=== PATIENT | female | born 1985 | race Caucasian/White ===

== ENCOUNTER 2018-07-28 10:24 | Outpatient (CLI) | payer BC ==
--- NOTE | 2018-07-28 11:44 | RAD ---
RIGHT ANKLE RADIOGRAPHS 3 VIEWS: DATE: 07/28/2018. PROVIDED CLINICAL HISTORY: Right ankle pain status post injury. FINDINGS: Linear ray radiolucency is seen in the region of the navicular on the lateral view which could reflec t nondisplaced fracture. No additional potential fracture is evident. Alignment appears anatomic. Joint spaces appear preserved. IMPRESSION: Possible nondisplaced navicular fracture. Consider CT. POS: [facility]
== END 2018-07-28 10:25 | disposition home or self-care (01) ==
LOC: NAV RAD 10:24
PROVIDERS: ATTEND Family Medicine
DX: S93.491D Sprain of other ligament of right ankle, subsequent encounter (principal)

== ENCOUNTER 2022-10-23 11:57 | Emergency (ER) | payer BC ==
[~2022-10-23 11:57] MED LIST: Iopamidol 370 76% 100 ML VIAL ONE
[2022-10-23] MEDS ORDERED: ALPRAZolam 0.5 MG TAB ONE (12:35)
[2022-10-23 12:52] LABS: #Basophils 0.1 thou/uL (0.0-0.2); #Lymphocytes 3.3 thou/uL (1.20-3.40); #Monocytes 0.6 thou/uL (0.11-0.59); #Neutrophils 5.1 thou/uL (1.40-6.50); %Basophils 0.7 % (0.0-1.0); %Eosinophils 0.4 % (0.0-10.0); %Lymphocytes 36.4 % (21.0-51.0); %Monocytes 6.6 % (0.0-10.0); %Neutrophils 55.8 % (42.0-75.0); Hemoglobin 14.2 g/dL (12.0-16.0); Mean Corpuscular HGB CONC 34.2 g/dL (32.0-36.0); Mean Corpuscular Hemoglobin 32.9 pg (27.0-31.0); Mean Platelet Volume 6.7 fL (7.4-10.4); Platelet Count 304 10x3/uL (130-400); Red Blood Cell (RBC) Count 4.32 mill/uL (4.20-5.40); White Blood Cell (WBC) Count 9.1 10x3/uL (4.8-10.8)
[2022-10-23 13:03] LABS: Anion Gap 19 mmol/L (10-20); BUN (Urea Nitrogen) 10 mg/dL (7.0-18.7); Calc. Creatinine Clearance 0 mL/min (70-130); Calcium 9.5 mg/dL (7.8-10.44); Carbon Dioxide 16 mmol/L (22-29); Chloride 107 mmol/L (98-107); Estimated GFR 85; Glucose 85 mg/dL (70-105); Potassium 3.6 mmol/L (3.5-5.1); Sodium 138 mmol/L (136-145)
== END 2022-10-23 14:42 | disposition home or self-care (01) ==
LOC: NAV ERS 11:57
DX: F41.1 Generalized anxiety disorder (principal)
CPT/HCPCS: 71045; 71275; 80048; 84443; 84484; 85025; 85379; 93005; Q9967